=== PATIENT | female | born 1960 | race Caucasian/White ===

== ENCOUNTER → 2020-07-25 12:56 | Outpatient (BNVA) | payer OTHER, SELFPAY | PROVIDERS: PCP Internal Medicine; Visit Provider Anesthesiology | DX: J44.9 Chronic obstructive pulmonary disease, unspecified (principal); G62.9 Polyneuropathy, unspecified; M47.812 Spondylosis without myelopathy or radiculopathy, cervical region; G89.4 Chronic pain syndrome | CPT/HCPCS: 99202 ==

== ENCOUNTER → 2020-10-03 13:40 | Outpatient (BNVA) | payer OTHER, SELFPAY | PROVIDERS: PCP Internal Medicine; Visit Provider Anesthesiology | DX: J44.9 Chronic obstructive pulmonary disease, unspecified (principal); G62.9 Polyneuropathy, unspecified; M47.812 Spondylosis without myelopathy or radiculopathy, cervical region; G89.4 Chronic pain syndrome | CPT/HCPCS: 99212 ==

== ENCOUNTER → 2020-10-25 10:30 | Outpatient (BNVA) | payer OTHER, SELFPAY | PROVIDERS: PCP Internal Medicine; Visit Provider Anesthesiology ==

== ENCOUNTER → 2020-10-30 10:28 | Outpatient (BNVA) | payer OTHER, SELFPAY | PROVIDERS: PCP Internal Medicine; Visit Provider Family Medicine Adult Medicine ==